=== PATIENT | female | born 1980 | race Caucasian/White ===

== ENCOUNTER 2018-07-02 14:01 | Observation (INO) ==
--- NOTE | 2018-07-02 06:47 | MH ---
cc: Bryce Goncalves MD DATE OF ADMISSION: 07/02/2018 Corrected Copy: 07/03/18 CHIEF COMPLAINT: Pelvic pain with left ovarian cyst. HISTORY OF PRESENT ILLNESS: The patient is a 37-year-old, white female, para 1-0-0-1 with a history of pelvic pain and pelvic pressure. A pelvic ultrasound on 05/09/2018 revealed a cyst on the left ovary, 9 cm, with no free fluid. There were some small fibroids and a small amount of fluid in the posterior cul-de-sac. Laboratory studies were normal. She had an HSG performed. PAST MEDICAL HISTORY: None. MEDICATIONS: Synthroid. ALLERGIES: NONE. SMI Hypothyroid. TRANSFUSIONS: None. Surgery age 8 x 2 for appendectomy OBSTETRIC HISTORY: Term delivery vaginal in 2010. 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 She is . Alcohol, tobacco, and drugs are none. FAMILY HISTORY: Noncontributory. PHYSICAL EXAMINATION: GENERAL: She is a well-nourished, well-developed white female. VITAL SIGNS: Stable. HEENT: Exam WNL CHEST: Clear. HEART: Regular rate. BREASTS: Symmetrical. ABDOMEN: Benign. PELVIC: Vagina is normal. Cervix normal. Uterus is normal size and shape, anterior. Posterior cul-de-sac, cystic mass of 10 cm. ASSESSMENT: As above. PLAN: She is admitted for laparoscopy with possible cystectomy, oophorectomy. The risks, benefits and complications explained and accepted. MD SOPHIA Winston/josh/shreyas , 09:36 PM , 09:41 PM BRENDA
[2018-07-02] MEDS ORDERED: Sodium Chlor 0.9% Inj 500 ML IV.CONT ONE (14:45)
[2018-07-02] MEDS ORDERED: Chlorhexidine Gluconate 2% 1 Pack (2 Cloths) TOPICAL ONE (14:45)
[2018-07-02] MEDS ORDERED: Metoprolol Tartrate 25 MG Tablet PO ONE (14:45)
[2018-07-02] MEDS ORDERED: ceFAZolin 1 GM Premix Inj 1 GM/50 ML PIGGYBACK IV.SIG SCH (15:00)
[2018-07-02] MEDS ORDERED: fentaNYL Citrate Inj 250 MCG/5 ML Ampul ONE (15:30)
[2018-07-02] MEDS ORDERED: Bupivacaine/Epinephrine PF Inj 0.5% 30 ML Vial ONE (15:43)
[2018-07-02] MEDS ORDERED: *Meperidine Inj 25 MG/ML Vial PERIprocedural Use ONLY ONE (18:28)
[2018-07-02] MEDS ORDERED: *HYDROmorphone PF Inj 1 MG/ML Ampul PERIprocedural Use ONLY ONE (19:13)
[2018-07-02] MEDS ORDERED: Zolpidem Tartrate 5 MG Tablet PO PRN (19:54)
[2018-07-02] MEDS: Ketorolac Inj 30 MG/ML (IVP) Vial IV.PUSH SCH (20:39)
--- NOTE | 2018-07-02 20:41 | MP ---
cc: Bryce Goncalves MD DATE OF OPERATION: 07/02/2018 PREOPERATIVE DIAGNOSIS: Left ovarian mass. POSTOPERATIVE DIAGNOSIS: Left ovarian mass. PROCEDURE PERFORMED: Laparoscopy with left salpingo-oophorectomy. ANESTHESIA: General, ET. SURGEON: Bryce Goncalves MD CAMP NURSE: Ashley. ESTIMATED BLOOD LOSS: About 50 mL FLUIDS: 1.5 liter of crystalloid. OBJECTIVE FINDINGS: Following induction of adequate general endotracheal anesthesia, the patient was prepped and draped supine on the operating table in the usual sterile fashion with the bladder being drained via Justin catheterization. The abdomen was opened with a 3 cm curving infraumbilical incision, using a knife to cut down through the skin to the fascia. The fascia opened transversely, stripped from the muscles, rectus muscle split in the midline and the peritoneum opened with blunt finger dissection. There were a few omental adhesions around the anterior abdominal wall. The mini GelPort was placed, laparoscope inserted and a 5 port placed in left and right lower quadrant under direct vision. The uterus had some subserosal fibroids. The right tube was normal. The left ovary was enlarged about 10 cm sitting in the posterior cul-de-sac. Due to the extensive size of the mass, there was no observable tissue. Harmonic scalpel was used to take the left ovarian vessels, left mesosalpinx and the left uteroovarian pedicle. Prior to this dissection washings were obtained for cytology. The left ovarian mass and tube were then placed into a pouch. The pouch exteriorized at the GelPort site. A needle was used to aspirate fluid from the cyst for permanent study and this allowed removal of the left tube and ovary intact through the GelPort site. Irrigation now performed. No bleeding was evident. Low pressure test with no bleeding. The operative sites were covered with Arixtra, the GelPort was removed. The peritoneum was sutured with a running 2-0 Vicryl, the fascia with a running locking stitch with 0 Vicryl, cornered in the midline and tied, subcutaneous with running 3-0 Vicryl and the skin injected with 10 mL of 0.5% Marcaine with epinephrine 10% subcuticular and the skin closed with a running subcuticular 3-0 Monocryl. The scope was now reinserted through the lower port sites, inspected. The GelPort site was now closed. No entrapment of tissue. Pelvis inspected. No bleeding. The scope was now removed and the gas was allowed to escape. Small ports were removed. Each injected with 3 mL of Marcaine 0.5% with epinephrine and closed with interrupted 3-0 Monocryl. Dermabond applied. Counts were correct. Justin was continued and the patient was awakened and taken to the recovery room in good condition. MD SOPHIA Winston/ct/do , 06:11 PM , 06:20 PM [email or web address]
[2018-07-03] MEDS: Ketorolac Inj 30 MG/ML (IVP) Vial IV.PUSH SCH ×2 (01:51→08:40)
== END 2018-07-03 10:54 | disposition home or self-care (01) ==
LOC: H1EA 14:01 → HOR 14:01
PROVIDERS: ADMIT Obstetrics & Gynecology; ATTEND Obstetrics & Gynecology
PROC: LAPSCPY (ICD-10-PCS; 2018-07-02 16:47)